=== PATIENT | female | born 1960 | race Caucasian/White ===

== ENCOUNTER 2017-08-01 18:26 | Emergency (ER) | payer OTHER ==
[2017-08-01 18:52] VITALS: TEMP 98
--- NOTE | 2017-08-01 20:28 | ED ---
General Adult HPI - General Chief complaint: Recheck/Abnormal Lab/Rx Stated complaint: Hypertension Time Seen by Provider: 08/01/17 20:08 Source: patient, family, RN notes reviewed Mode of arrival: ambulatory Limitations: no limitations - History of Present Illness Initial comments: Chief complaint and history of present illness this is a 56-year-old female here with significant other. The patient reports for the past week she been having blood pressure issues. It goes up but never comes down to low. She does report though that today she did take a metoprolol which she had stopped for a prolonged period of time and the blood pressure is 130/92. At home she was getting numbers in the 200/110 range. Mild headaches. Currently the patient is taking amlodipine 5 mg she's been taking lisinopril HCTZ 20/25 for many years. The metoprolol used to make her sleepy so she stopped it she did take it today and appears to be had good effect. Recently her doctor put her on Celexa and Xanax as well to help her relax. No neuro deficits. No dizziness. No nausea no vomiting. - Related Data Home Medications Medication Instructions Recorded Confirmed ALPRAZolam [Xanax] 0.25 mg PO BID PRN 08/01/17 08/01/17 Citalopram Hydrobromide [CeleXA] 20 mg PO DAILY 08/01/17 08/01/17 Lisinopril-Hctz 20-25 mg 1 tab PO DAILY 08/01/17 08/01/17 [Zestoretic 20-25] Metoprolol Tartrate [Lopressor] 50 mg PO ONCE PRN 08/01/17 08/01/17 amLODIPine [Norvasc] 5 mg PO DAILY 08/01/17 08/01/17 Allergies Allergy/AdvReac Type Severity Reaction Status Date / Time No Known Allergies Allergy Verified 08/01/17 21:07 Review of Systems ROS Statement: Those systems with pertinent positive or pertinent negative responses have been documented in the HPI. Review of systems. Patient checked her blood pressure at home she bought a new machine and has persistently elevated. See the chief complaint. Past medical problems hypertension. Surgeries . Family history hypertension diabetes. Patient denies ALLERGIES she does smoke strongly encouraged stop and drinks alcohol. She also reports that she drank half of beer which she thinks helped bring the blood pressure down. ROS Other: All systems not noted in ROS Statement are negative. Past Medical History Past Medical History: Hypertension History of Any Multi-Drug Resistant Organisms: None Reported Past Surgical History: No Surgical Hx Reported Past Psychological History: No Psychological Hx Reported Smoking Status: Current every day smoker Past Alcohol Use History: Occasional Past Drug Use History: None Reported General Exam - General Exam Comments Initial Comments: General: The patient is awake and alert, has come the emergency room because she's been having elevated blood pressure at home is been monitored by her her new machine. She is on blood pressure pills. Current vital signs temperature 98.0 pulse 92 respiratory rate 18 pulse ox 98% room air blood pressure 130/92 this will be repeated.. Eye: Pupils are equal, round and reactive to light, extra-ocular movements are intact ; there is normal conjunctiva bilaterally. No signs of icterus. Ears, nose, mouth and throat: There are moist mucous membranes and no oral lesions. Neck: The neck is supple, there is no tenderness, no stiff neck, no headache. Cardiovascular: There is a regular rate and rhythm. No murmur, rub or gallop is appreciated. Respiratory: Lungs are clear to auscultation, respirations are non-labored, breath sounds are equal. No wheezes, stridor, rales, or rhonchi. Gastrointestinal: No complaint of nausea or abdominal pain. Back: No back pain. Musculoskeletal: Full range of motion upper and lower extremities without complaints of discomfort. Neurological: No dizziness, no neuro deficits. Psychiatric: Cooperative, Limitations: no limitations Course Vital Signs 08/01/17 08/01/17 08/01/17 18:50 20:28 21:31 Temperature 98 F Pulse Rate 92 60 52 L Respiratory 18 18 18 Rate Blood Pressure 130/92 153/86 175/91 O2 Sat by Pulse 98 96 97 Oximetry 08/01/17 22:37 Temperature Pulse Rate 56 L Respiratory 20 Rate Blood Pressure 153/83 O2 Sat by Pulse 96 Oximetry Medical Decision Making - Medical Decision Making Medical decision making; patient blood pressure been elevated at home. She stopped taking metoprolol. Recently she was placed on Celexa and Xanax for anxiety associated with general problems. She's been on lisinopril and amlodipine as well. Emergency room the patient was given Catapres 0.2 with good results. On discharge blood pressure is significantly improved. Neurologically intact. Patient was told to continue taking her metoprolol which she had stopped several months ago. Advised to call follow-up with family physician Disposition Clinical Impression: Hypertension Disposition: HOME SELF-CARE Condition: Fair Instructions: Hypertension (ED) Additional Instructions: Stay hydrated, take blood pressure pills including the Toprol as directed as often as directed. Follow-up with the family physician return emergency room as needed. Referrals: Radha Shane MD [Primary Care Provider] - 1-2 days Time of Disposition: 23:02
[2017-08-01] MEDS ORDERED: cloNIDine HCL 0.1 MG TAB PO STA ×2 (20:31→21:37)
[2017-08-01 22:38] VITALS: BP 153/83; PULSE 56; RESP 20
== END 2017-08-01 23:11 | disposition home or self-care (01) ==
LOC: EC 18:26
DX: I10 Essential (primary) hypertension (principal); F41.9 Anxiety disorder, unspecified; F17.200 Nicotine dependence, unspecified, uncomplicated; Z79.899 Other long term (current) drug therapy
CPT/HCPCS: 99283

== ENCOUNTER → 2022-01-07 | Outpatient (CLI) | payer OTHER ==
--- NOTE | 2022-01-07 15:25 | MR ---
EXAMINATION TYPE: MR brain wo/w con DATE OF EXAM: 01/07/2022 COMPARISON: None HISTORY: DIZZINESS, EPISODIC TENSION-TYPE HEADACHE TECHNIQUE: Multiplanar, multisequence images of the brain and brainstem is performed without and with IV contras t, utilizing 6 mL intravenous Gadavist . FINDINGS: Diffusion weighted images demonstrate no evidence of a recent infarct or other diffusion ab normality. There is no extra-axial fluid collection. There are scattered high T2 deep white matter s ignal changes. The ventricular system and cisternal spaces are normal in size and appearance. The b rain volume is age appropriate. Midline structures demonstrate normal morphology. The craniocervical junction appears within normal limits. Post contrast images demonstrate no abnormal enhancement. The dural venous sinuses appear pa tent. The visualized sinuses are clear and the globes are intact. Left transverse sinus arachnoid gra nulation more medially. IMPRESSION: No evidence for acute intracranial process. No intracranial mass or abnormal postcontrast enhancement .
== END | disposition home or self-care (01) ==
LOC: RADMRIMAIN 07:40
PROVIDERS: ATTEND Psychiatry & Neurology Neurology
DX: R42 Dizziness and giddiness (principal); G44.219 Episodic tension-type headache, not intractable
CPT/HCPCS: 70553; A9585